=== PATIENT | female | born 1990 | race Caucasian/White ===

== ENCOUNTER 2019-08-10 04:17 | Emergency (ER) | payer MEDICAID ==
[~2019-08-10] VITALS: Ht 172.7 cm; Wt 60.8 kg
--- NOTE | 2019-08-10 04:48 | NUR ---
MD AT BEDSIDE FOR HX AND PHYSICAL PT DESCRIBED SUPRAPUBIC PN AT 9/10 AND PAIN UPON URINATION DESCRIBES DYSURIA, DENIES HEMATURIA, DENIES SOB, DENIES FEVERS/NVD LMP [id number] (STATED) [id number] DENIES RECENT TRAVELS/NONSMOKER/RECREATIONAL DRUG USE CHAPERONED ERMD FOR PELVIC EXAM, REVEALED NO ERYTHEMA,PRURITUS,DISCHARGE,CHANGES IN ODOR PROVIDED PRIVACY PT KEPT WARM DRY AND COMFORTABLE PT ABLE TO AMBULATE TOWARDS RESTROOM TO PROVIDE URINE SAMPLE
[2019-08-10] MEDS ORDERED: PHENAZOPYRIDINE HCL 100 MG TABLET ONE (04:50)
[2019-08-10] MEDS ORDERED: ONDANSETRON 4 MG/2 ML VIAL IV ONE (05:00)
[2019-08-10] MEDS ORDERED: PHENAZOPYRIDINE HCL 100 MG TABLET PO ONE (05:00)
[2019-08-10] MEDS ORDERED: MORPHINE SULFATE 4 MG/1 ML DISP.SYRIN IV ONE (05:00)
[2019-08-10 05:03] LABS: *BLOOD, URINE 2+ (NEGATIVE); *CLARITY,URINE CLOUDY (CLEAR); *COLOR,URINE YELLOW (YELLOW); *KETONES,URINE TRACE (NEGATIVE); LEUKOCYTE ESTERASE ,URINE TRACE (NEGATIVE); NITRITE, URINE POSITIVE (NEGATIVE); UGLUCOSE NEGATIVE (NEGATIVE)
[2019-08-10 05:05] LABS: BASOPHILS % (AUTO) 0.2 % (0.0-2.0); EOSINOPHILS # (AUTO) 0.1 K/uL (0.0-0.7); EOSINOPHILS % (AUTO) 0.5 % (0.0-7.0); HEMATOCRIT 41.6 % (31.2-41.9); HEMOGLOBIN 13.6 g/dL (10.9-14.3); LYMPHOCYTES # (AUTO) 2.1 K/uL (20.0-40.0); LYMPHOCYTES % (AUTO) 15.5 % (20.5-51.5); MEAN CORPUSCULAR HEMOGLOBIN 29.1 uug (24.7-32.8); MEAN CORPUSCULAR HGB CONC 33 g/dL (32.3-35.6); MEAN CORPUSCULAR VOLUME 88.9 fL (75.5-95.3); MONOCYTES # (AUTO) 0.7 K/uL (2.0-10.0); NEUTROPHILS # (AUTO) 10.8 K/uL (1.8-8.9); NEUTROPHILS % (AUTO) 78.8 % (38.5-71.5); PLATELET COUNT (AUTO) 339 K/uL (179-408); RED BLOOD CELL COUNT(AUTO) 4.68 MIL/uL (3.63-4.92); WHITE BLOOD COUNT (AUTO) 13.7 K/uL (3.8-11.8)
[2019-08-10] MEDS ORDERED: MORPHINE SULFATE 4 MG/1 ML DISP.SYRIN ONE (05:05)
[2019-08-10] MEDS ORDERED: ONDANSETRON 4 MG/2 ML VIAL ONE (05:05)
[2019-08-10 05:09] LABS: *BILIRUBIN,URIN 1+ (NEGATIVE)
[2019-08-10 05:14] LABS: BACTERIA,URINE MANY /HPF (NONE SEEN); CREATININE 0.9 mg/dL (0.6-1.3); POTASSIUM 3.8 mmol/L (3.5-5.1); RBC,URINE 50-80 /HPF (0-3); SQUAMOUS EPITHELIAL CELL,UR MODERATE /HPF (NONE SEEN); WBC,URINE TNTC /HPF (0-3)
[2019-08-10] MEDS ORDERED: CEFTRIAXONE /D5W 50ML IVPB **ER PYXIS IV ONE (05:26)
[2019-08-10] MEDS ORDERED: CEFTRIAXONE 1 G in IV DEXTROSE 5% 50 ML IV ONE (05:30)
--- NOTE | 2019-08-10 06:10 | NUR ---
Patient discharged to home in stable conditon. Written and verbal after care instructions given. Patient verbalizes understanding of instructions. IV removed. Catheter intact and site benign. Pressure and 4x4 gauze applied to site. No bleeding noted. Patient ambulating with steady gait. Patient stated that she will uber it home.
[2019-08-10 07:04] VITALS: BP 122/63
== END 2019-08-10 06:10 | disposition home or self-care (01) ==
LOC: ER 04:19
DX: N30.90 Cystitis, unspecified without hematuria (principal); R55 Syncope and collapse
CPT/HCPCS: 36415; 80048; 81000; 81001; 83690; 84702; 85025; 87077; 87086; 87186; 96365; 96375; 99283; J0696; J2270; J2405; A4663